=== PATIENT | female | born 1940 | race Caucasian/White ===

== ENCOUNTER 2021-10-10 19:08 | Emergency (ER) | payer MEDICARE, OTHER ==
[~2021-10-10] VITALS: Ht 152.4 cm; Wt 54.0 kg
[2021-10-11 07:22] VITALS: BP 131/75
== END 2021-10-11 10:21 | disposition home or self-care (01) ==
LOC: ER 19:08 → EDBD 19:08 → ER 10-11 10:00
DX: T80.1XXA Vascular complications following infusion, transfusion and therapeutic injection, initial encounter (principal); E11.9 Type 2 diabetes mellitus without complications